=== PATIENT | male | born 1960 | race Caucasian/White ===

== ENCOUNTER 2021-02-21 09:33 | Outpatient (CLI) | payer OTHER, SELFPAY ==
--- NOTE | ~2021-02-21 | XR_ITS ---
EXAMINATION: XR knee LT 3V DATE: 02/21/2021 10:32 INDICATION: Left knee pain, unspecified osteoarthritis TECHNIQUE: Three views of the left knee were obtained. COMPARISON: None. FINDINGS: Alignment is normal. No fracture or osteochondral lesion. There is tricompartmental osteoar thritis, mild in the lateral and medial compartments and advanced in the patellofemoral compartment. No joint effusion/synovitis. Soft tissues are unremarkable. IMPRESSION: 1. Tricompartmental osteoarthritis without acute osseous abnormality. Reviewed, dictated and finalized at location A.
--- NOTE | ~2021-02-21 | XR_ITS ---
EXAMINATION: XR knee RT 3V DATE: 02/21/2021 10:32 INDICATION: Right knee pain, unspecified osteoarthritis TECHNIQUE: Three views of the right knee were obtained. COMPARISON: None. FINDINGS: Alignment is normal. No fracture or osteochondral lesion. There is tricompartmental osteoar thritis of the knee, mild in the lateral compartment, moderate in the medial compartment, and severe in the patellofemoral compartment. No joint effusion/synovitis. Calcified atherosclerosis is noted. IMPRESSION: 1. No acute osseous abnormality. Reviewed, dictated and finalized at location A.
--- NOTE | ~2021-02-21 | XR_ITS ---
XR foot RT standing 2V 02/21/2021 10:32 Indication: Right foot pain Procedure: 2 views right foot Comparison: No prior studies for comparison. Findings: There is moderate osteoarthritis of the first MTP joint with hallux valgus. There is modera te polyarticular osteoarthritis of the midfoot. Normal mineralization. There is a degenerative calcan eal enthesophyte at the plantar surface. There is pes planus. There is mild diffuse soft tissue swell ing. 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 Reviewed, dictated and finalized at location A. 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
--- NOTE | ~2021-02-21 | XR_ITS ---
EXAMINATION: XR shoulder LT min 2V, XR shoulder RT min 2V DATE: 02/21/2021 10:32 INDICATION: Unspecified osteoarthritis of unspecified site TECHNIQUE: 1. AP internally and externally rotated, AP oblique externally rotated and axillary views of the left shoulder were obtained. 2. AP internally and externally rotated, AP oblique externally rotated and axillary views of the righ t shoulder were obtained. COMPARISON: None FINDINGS: There is slight cephalad migration of the bilateral humeral heads relative to the glenoids with narro wing of the subacromial spaces. Subacromial spurs are seen with suggestion of some remodeling along t he undersurfaces of the acromion. No fracture.Bilateral mild glenohumeral and acromioclavicular osteo arthritis. Although poorly profiled on the axial projections there is additional degenerative change at the bilateral elbows with small enthesopathic versus heterotopic ossicles. Soft tissues are unrema rkable. IMPRESSION: 1. Bilateral mild glenohumeral and acromioclavicular osteoarthritis. 2. Mild narrowing of the bilateral subacromial spaces suggesting some degree of rotator cuff disease. Reviewed, dictated and finalized at location A. IMPRESSION: 1. Bilateral mild glenohumeral and acromioclavicular osteoarthritis. 2. Mild narrowing of the bilateral subacromial spaces suggesting some degree of rotator cuff disease.
--- NOTE | ~2021-02-21 | XR_ITS ---
EXAMINATION: HAND-CARLOZ ARTHRITIS 3+VIEWS DATE: 02/21/2021 10:32 INDICATION: Unspecified osteoarthritis with bilateral hand pain. TECHNIQUE: Posteroanterior, lateral, and oblique views of the left and of the right hands as well as a ballcatchers view of both hands were obtained. COMPARISON: None. FINDINGS: Alignment is normal. No fracture. Polyarticular osteoarthritis throughout both hands characterized by nonuniform joint space narrowing and small marginal osteophytes. This is of moderate severity at the right triscaphe, bilateral first carpometacarpal, left second and third metacarpophalangeal and righ t second metacarpophalangeal joints. Mild osteoarthritis at the the right triscaphe and majority the remaining metacarpophalangeal and interphalangeal joints. There are a few scattered periarticular ero sions including at the head of the left second metacarpal, the ulnar side of the base of the left fou rth proximal phalanx and radial side of the base of the left third proximal phalanx. IMPRESSION: 1. Relatively symmetric pattern of polyarticular osteoarthritis at the bilateral hands. The predomina nce at the second and third metacarpophalangeal joints suggests the possibility of secondary osteoart hritis related to calcium pyrophosphate deposition (CPPD) disease. 2. At least 3 erosions in the left hand with differential including inflammatory arthritides such as rheumatoid and crystalline position diseases such as gout or CPPD. Reviewed, dictated and finalized at location A. IMPRESSION: 1. Relatively symmetric pattern of polyarticular osteoarthritis at the bilatera l hands. The predominance at the second and third metacarpophalangeal joints ruth ggests the possibility of secondary osteoarthritis related to calcium pyrophosp hate deposition (CPPD) disease. 2. At least 3 erosions in the left hand with differential including inflammator y arthritides such as rheumatoid and crystalline position diseases such as gout or CPPD.
--- NOTE | ~2021-02-21 | XR_ITS ---
XR foot LT standing 2V 02/21/2021 10:32 Indication: Osteoarthritis Procedure: 2 views left foot Comparison: No prior studies for comparison. Findings: There is an erosive change at the fifth metatarsal head medially. There is also a focal ero gaston distal aspect of the fifth metatarsal shaft. Mild osteoarthritis of the first metatarsophalangea l joint. There is mild polyarticular osteoarthritis of the midfoot. No acute fracture. Lisfranc joint intact. There is pes planus. There is a degenerative calcaneal enthesophyte at the plantar surface. Impression: 1: Erosive changes of the left fifth metatarsal which may be due to inflammatory arthropathy, althoug h osteomyelitis should be considered in the appropriate clinical setting. 2: Mild polyarticular osteoarthritis. Reviewed, dictated and finalized at location A. Impression: 1: Erosive changes of the left fifth metatarsal which may be due to inflammator y arthropathy, although osteomyelitis should be considered in the appropriate c linical setting. 2: Mild polyarticular osteoarthritis.
[2021-02-21 10:03] LABS: Hematocrit 41.4 % (42.0-52.0); Hemoglobin 13.7 g/dL (14.0-18.0); Mean Corpuscular HGB Conc 33.1 g/dl (32-36); Mean Corpuscular Hemoglobin 29.4 pg (26-34); Mean Corpuscular Volume 88.8 fl (80-100); Mean Platelet Volume 9.1 fl (7.4-10.4); Platelet Count Result 232 k/mm3 (150-375); Red Blood Count 4.66 M/mm3 (4.6-6.20); Red Cell Distribution Width 14.4 % (11.5-14.5); White Blood Count 6.1 K/mm3 (4.5-10.0)
[2021-02-21 10:16] LABS: Rheumatoid Factor < 8.6 IU/ML (<12)
[2021-02-21 10:18] LABS: Alanine Aminotransferase 25 U/L (4-50); Albumin Level 4.6 g/dL (3.5-5.1); Alkaline Phosphatase 80 U/L (38-126); Anion Gap 12 mmol/L (8-16); Aspartate Amino Transferase 30 U/L (17-59); Bilirubin,Total 0.8 mg/dL (0.2-1.3); Blood Urea Nitrogen 21 mg/dL (9-20); CRP < 0.5 mg/dL (<1.0); Calcium 9.5 mg/dL (8.4-10.2); Carbon Dioxide 21 mmol/L (22-30); Chloride 103 mmol/L (98-107); Estimated Glomerular Filt Rate > 60; Glucose 101 mg/dL (65-110); Sodium 136 mmol/L (137-145)
[2021-02-21 11:01] LABS: Erythrocyte Sedimentation Rate 18 mm/hr (0-20)
[2021-02-23 19:50] LABS: Anti Cyclic Citrullinated Pept <16 Units (<20)
== END 2021-02-21 09:34 | disposition home or self-care (01) ==
LOC: ANHLAB 09:37
PROVIDERS: PCP Internal Medicine; Visit Provider Internal Medicine
DX: M19.041 Primary osteoarthritis, right hand (principal); M19.042 Primary osteoarthritis, left hand; M19.011 Primary osteoarthritis, right shoulder; M19.012 Primary osteoarthritis, left shoulder; M19.071 Primary osteoarthritis, right ankle and foot; M19.072 Primary osteoarthritis, left ankle and foot; M17.12 Unilateral primary osteoarthritis, left knee
CPT/HCPCS: 36415; 73030; 73130; 73562; 73620; 80053; 85027; 85652; 86038; 86140; 86200; 86430

== ENCOUNTER 2022-05-09 09:38 | Outpatient (CLI) | payer OTHER, SELFPAY ==
[2022-05-09 09:59] LABS: Hematocrit 43.2 % (42.0-52.0); Hemoglobin 14.3 g/dL (14.0-18.0); Mean Corpuscular HGB Conc 33.1 g/dl (32-36); Mean Corpuscular Hemoglobin 31.1 pg (26-34); Mean Corpuscular Volume 93.9 fl (80-100); Platelet Count Result 283 k/mm3 (150-375); Red Cell Distribution Width 13.5 % (11.5-14.5); White Blood Count 6.7 K/mm3 (4.5-10.0)
[2022-05-09 10:44] LABS: Alanine Aminotransferase 26 U/L (6-50); Albumin Level 4.6 g/dL (3.5-5.1); Alkaline Phosphatase 131 U/L (38-126); Anion Gap 12 mmol/L (8-16); Aspartate Amino Transferase 66 U/L (17-59); Bilirubin,Total 0.5 mg/dL (0.2-1.3); Blood Urea Nitrogen 20 mg/dL (9-20); CRP 0.7 mg/dL (<1.0); Calcium 9.4 mg/dL (8.4-10.2); Carbon Dioxide 26 mmol/L (22-30); Chloride 99 mmol/L (98-107); Estimated Glomerular Filt Rate > 60; Glucose 109 mg/dL (65-110); Potassium 4.8 mmol/L (3.4-5.0); Sodium 137 mmol/L (137-145); Uric Acid 9.1 mg/dL (3.5-8.5)
[2022-05-09 11:41] LABS: Erythrocyte Sedimentation Rate 18 mm/hr (0-20)
== END 2022-05-09 09:39 | disposition home or self-care (01) ==
LOC: ANHLAB 09:40
PROVIDERS: PCP Internal Medicine; Visit Provider Internal Medicine
DX: M10.9 Gout, unspecified (principal); M19.90 Unspecified osteoarthritis, unspecified site
CPT/HCPCS: 36415; 80053; 84550; 85027; 85652; 86140

== ENCOUNTER 2022-12-11 09:06 | Outpatient (CLI) | payer OTHER, SELFPAY ==
[2022-12-11 09:26] LABS: Hematocrit 45.8 % (42.0-52.0); Hemoglobin 15.2 g/dL (14.0-18.0); Mean Corpuscular HGB Conc 33.2 g/dl (32-36); Mean Corpuscular Hemoglobin 30.9 pg (26-34); Mean Corpuscular Volume 93.1 fl (80-100); Mean Platelet Volume 8.6 fl (7.4-10.4); Platelet Count Result 256 k/mm3 (150-375); Red Blood Count 4.92 M/mm3 (4.6-6.20); Red Cell Distribution Width 12.3 % (11.5-14.5); White Blood Count 5.6 K/mm3 (4.5-10.0)
[2022-12-11 12:21] LABS: Alanine Aminotransferase 26 U/L (6-50); Albumin Level 4.3 g/dL (3.5-5.1); Alkaline Phosphatase 96 U/L (38-126); Anion Gap 7 mmol/L (8-16); Aspartate Amino Transferase 77 U/L (17-59); Bilirubin,Total 0.5 mg/dL (0.2-1.3); Blood Urea Nitrogen 14 mg/dL (9-20); Calcium 8.8 mg/dL (8.4-10.2); Carbon Dioxide 31 mmol/L (22-30); Chloride 98 mmol/L (98-107); Estimated Glomerular Filt Rate > 60; Glucose 102 mg/dL (65-110); Sodium 136 mmol/L (137-145); Uric Acid 6.8 mg/dL (3.5-8.5)
== END 2022-12-11 09:07 | disposition home or self-care (01) ==
LOC: ANHLAB 09:08
PROVIDERS: PCP Internal Medicine; Visit Provider Internal Medicine
DX: M06.00 Rheumatoid arthritis without rheumatoid factor, unspecified site (principal); M19.90 Unspecified osteoarthritis, unspecified site
CPT/HCPCS: 36415; 80053; 83520; 84550; 85027; 86140